=== PATIENT | female | born 1960 ===

== ENCOUNTER 2024-09-27 06:16 | Day surgery (SDC) | payer BC, SELFPAY | END 2024-09-27 08:46 | disposition home or self-care (01) | LOC: GI 06:16 | PROVIDERS: ATTENDING PHYSICIAN Internal Medicine Gastroenterology | DX: Z12.11 Encounter for screening for malignant neoplasm of colon (principal); K55.20 Angiodysplasia of colon without hemorrhage; K64.8 Other hemorrhoids; Z53.9 Procedure and treatment not carried out, unspecified reason | CPT/HCPCS: G0105 ==

== ENCOUNTER → 2024-09-27 14:20 | Day surgery (SDC) | payer BC, SELFPAY | END | disposition home or self-care (01) | LOC: GI 14:20 | PROVIDERS: ATTENDING PHYSICIAN Internal Medicine Gastroenterology | DX: Z12.11 Encounter for screening for malignant neoplasm of colon (principal); K55.20 Angiodysplasia of colon without hemorrhage; K64.8 Other hemorrhoids | CPT/HCPCS: G0105 ==